=== PATIENT | female | born 1990 | race Caucasian/White ===

== ENCOUNTER 2018-12-02 07:24 | Outpatient (CLI) | payer BC ==
[~2018-12-02] VITALS: Ht 160 cm; Wt 92.2 kg
[2018-12-02] MEDS ORDERED: TRANDATE 100MG100 MG PO (07:43)
[2018-12-02] MEDS ORDERED: PLAVIX 75MG TAB75 MG PO (07:44)
[2018-12-02] MEDS ORDERED: ASPIRIN 32325 MG/TAB PO (07:47)
[2018-12-02 08:13] VITALS: BP 119/63; PULSE 77; TEMP 98
[2018-12-02] MEDS ORDERED: SLOW-MAG71.5 MG PO (08:13)
[2018-12-02] MEDS ORDERED: PRENATAL MVI PO (08:14)
[2018-12-02] MEDS ORDERED: ZYRTEC 10MG10 MG PO (08:15)
[2018-12-02] MEDS ORDERED: PROVENTIL0.09 MG/A1 IH (08:16)
[2018-12-02] MEDS ORDERED: PROTONIX20 MG PO (08:16)
[2018-12-02 09:29] VITALS: BP 110/70; PULSE 90
--- NOTE | 2018-12-02 10:00 | NUR ---
Discharge instructions given to pt.Pt verbalizes understanding.Pt escorted out by this nurse.
== END 2018-12-02 10:02 | disposition home or self-care (01) ==
LOC: COL.CAR 07:24
DX: I63.9 Cerebral infarction, unspecified (principal); I47.2 Ventricular tachycardia

== ENCOUNTER → 2019-09-10 | Outpatient (CLI) | payer BC ==
[~2019-09-10] MED LIST: ASPIRIN 32325 MG/TAB PO; PLAVIX 75MG TAB75 MG PO; PRENATAL MVI PO; PROTONIX20 MG PO; PROVENTIL0.09 MG/A1 IH; SLOW-MAG71.5 MG PO; TRANDATE 100MG100 MG PO; ZYRTEC 10MG10 MG PO
== END ==
LOC: COL.RAD 10:18
DX: I67.2 Cerebral atherosclerosis (principal); I69.30 Unspecified sequelae of cerebral infarction; J32.0 Chronic maxillary sinusitis
CPT/HCPCS: Q9967

== ENCOUNTER 2023-10-08 11:51 | Day surgery (SDC) | payer BC ==
[~2023-10-08] VITALS: Ht 160.2 cm; Wt 82.6 kg
[~2023-10-08 11:51] MED LIST changes: +ADVIL200 MG PO; +AMOXICILLIN 8751 TAB PO; -ASPIRIN 32325 MG/TAB PO; +ASPIRIN 81M81 MG/TA2 PO; +BREO IH; +BRINTELLIX20 PO; +MULTI VITAMINS1 TAB PO; +NORCO 325 MG-51 TAB PO; -PRENATAL MVI PO; +SYNTHROID0.05 MG/TA PO; +TOPROL XL 25MG25 MG PO; +VYVANSE40 MG PO; +ZOFRAN ODT4 MG PO
[2023-10-08] MEDS ORDERED: NS Flush 10 ML SYRINGE PRN ICA (12:00)
[2023-10-08] MEDS ORDERED: 1/2 NS 1,000 ML IV SCH (12:00)
[2023-10-08 12:18] VITALS: BP 116/70; PULSE 62; TEMP 98.1
[2023-10-08 12:23] LABS: BASO # 0.1 K/mm3 (0.0-0.2); BASO % 1.1 % (0.0-2.0); EOS # 0.4 K/mm3 (0.0-0.7); EOS % 6.7 % (0.0-4.0); GRAN # 2.4 K/mm3 (1.4-6.5); GRAN % 45.3 % (42.2-75.2); HEMATOCRIT 41.2 % (37.0-47.0); HEMOGLOBIN 14.5 g/dl (12.5-16.0); LYMPH # 2.2 K/mm3 (1.2-3.4); LYMPH % 40.2 % (20.0-51.0); MEAN CELL VOLUME 90 fl (80.0-100.0); MEAN CORPUSCULAR HEMOGLOBIN 32 pg (27-31); MEAN CORPUSCULAR HGB CONC 35 g/dl (33.0-37.0); MEAN PLATELET VOLUME 9.3 fl (7.4-10.4); MONO # 0.4 K/mm3 (0.1-0.6); MONO % 6.5 % (1.7-9.3); PLATELET COUNT 251 K/mm3 (130-400); RED BLOOD COUNT 4.56 M/mm3 (4.10-5.30); REDCELL DISTRIBUTION WIDTH-CV 11.9 % (11.5-14.5)
[2023-10-08] MEDS ORDERED: METADATECD30 PO (12:32)
[2023-10-08] MEDS ORDERED: VERELAN120 MG PO (12:33)
[2023-10-08] MEDS ORDERED: DESYREL 50MG50 MG PO (12:33)
[2023-10-08 12:34] LABS: INR 1.1 (0.8-3.0); PROTHROMBIN TIME 11.8 SECONDS (9.7-12.8)
[2023-10-08 12:54] LABS: CALCIUM 9.9 mg/dL (8.4-10.2); CREATININE, serum 0.78 mg/dL (0.57-1.11); POTASSIUM 3.6 mmol/L (3.5-4.5)
[2023-10-08 14:15] VITALS: BP 126/73; PULSE 75
[2023-10-08 14:30] VITALS: BP 115/68; PULSE 62
[2023-10-08 14:45] VITALS: BP 111/63; PULSE 64
[2023-10-08 15:00] VITALS: BP 114/67; PULSE 63
--- NOTE | 2023-10-08 15:22 | NUR ---
PT TOLERATED RECOVERY TIME WELL AND WAS ASSISTED TO MAIN LOBBY VIA WHEELCHAIR. IV DISCONTINUED AND VS REMAINED WITHIN NORMAL LIMITS. PT FREE FROM ACUTE CONCERNS AND COMPLAINTS UPON DISCHARGE AND PT VERBALIZED UNDERSTANDING OF DISCHARGE INSTRUCTIONS.
[2023-10-08] MEDS ORDERED: NS Flush 10 ML SYRINGE BID ICA SCH (21:00)
== END 2023-10-08 15:24 | disposition home or self-care (01) ==
LOC: COL.CAR 11:51
PROVIDERS: Internal Medicine Cardiovascular Disease
DX: O99.413 Diseases of the circulatory system complicating pregnancy, third trimester (principal); R00.2 Palpitations; I34.0 Nonrheumatic mitral (valve) insufficiency; I49.8 Other specified cardiac arrhythmias; R42 Dizziness and giddiness; R01.1 Cardiac murmur, unspecified; Z3A.00 Weeks of gestation of pregnancy not specified; Z86.73 Personal history of transient ischemic attack (TIA), and cerebral infarction without residual deficits; Z95.818 Presence of other cardiac implants and grafts
CPT/HCPCS: J2704